=== PATIENT | female | born 1940 | race Caucasian/White ===

== ENCOUNTER 2017-09-13 05:34 | Day surgery (SDC) | payer MEDICARE ==
[~2017-09-13] VITALS: Ht 167.6 cm; Wt 74.1 kg
[2017-09-13] MEDS ORDERED: LACTATED RINGERS 1,000 ML IV SCH (06:11)
[2017-09-13] MEDS ORDERED: BIOT1TAB12 PO (06:23)
[2017-09-13] MEDS ORDERED: MAGN400C PO (06:23)
[2017-09-13] MEDS ORDERED: CA C1TAB62 PO (06:23)
[2017-09-13] MEDS ORDERED: CYAN500T2 PO (06:23)
[2017-09-13] MEDS ORDERED: KRIL1CAP22 PO (06:23)
[2017-09-13] MEDS ORDERED: MULT-6 PO (06:23)
[2017-09-13] MEDS ORDERED: FEXO1TAB29 PO (06:23)
[2017-09-13] MEDS ORDERED: ASCO10004 PO (06:23)
[2017-09-13] MEDS ORDERED: CHOL200074 PO (06:23)
[2017-09-13 06:24] VITALS: BP 142/87
[2017-09-13] MEDS ORDERED: BUPIVACAINE/PF 0.5% ONE ×2 (07:00→07:35)
[2017-09-13] MEDS ORDERED: BACITRACIN 50,000 UNIT ONE (07:01)
[2017-09-13] MEDS ORDERED: FENTANYL PF 100 MCG/2ML ONE (07:05)
[2017-09-13] MEDS ORDERED: MIDAZOLAM 1 MG/ML, 2ML ONE (07:05)
[2017-09-13] MEDS ORDERED: PROPOFOL 10 MG/ML, 20ML ONE (07:52)
[2017-09-13] MEDS ORDERED: DEXAMETHASONE 4 MG/ML, 1ML ONE (07:52)
[2017-09-13] MEDS ORDERED: KETOROLAC 30 MG/1 ML ONE (07:52)
[2017-09-13] MEDS ORDERED: ONDANSETRON 2MG/ML, 2ML ONE (07:52)
[2017-09-13] MEDS ORDERED: CEFAZOLIN 1,000 MG ONE (07:52)
[2017-09-13] MEDS ORDERED: FENTANYL PF 100 MCG/2ML IV PRN (08:00)
[2017-09-13] MEDS ORDERED: ONDANSETRON 2MG/ML, 2ML IVPush PRN (08:00)
[2017-09-13] MEDS ORDERED: HYDROmorphone 1 MG/ML, 1ML IV PRN (08:00)
[2017-09-13] MEDS ORDERED: ACETAMINOPHEN 325 MG TABLET PO PRN (08:00)
[2017-09-13] MEDS ORDERED: OXYcodone 5 MG/5 ML ORAL.SOL UDC PO PRN (08:00)
[2017-09-13] MEDS ORDERED: MEPERIDINE/PF 25MG/0.5ML IVPush PRN (08:00)
== END 2017-09-13 09:55 ==
LOC: OUT 05:34
PROVIDERS: ATTEND Neurological Surgery
DX: G56.01 Carpal tunnel syndrome, right upper limb (principal); E78.5 Hyperlipidemia, unspecified; I10 Essential (primary) hypertension; Z90.710 Acquired absence of both cervix and uterus; Z98.890 Other specified postprocedural states; Z88.1 Allergy status to other antibiotic agents; Z88.0 Allergy status to penicillin; Z88.8 Allergy status to other drugs, medicaments and biological substances
CPT/HCPCS: 64721; J0690; J1100; J1885; J2250; J2405; J2704; J3010; J3490; J7120